=== PATIENT | male | born 1960 | race Caucasian/White ===

== ENCOUNTER 2018-04-04 07:53 | Day surgery (SDC) | payer OTHER ==
--- NOTE | 2018-04-04 08:32 | EDPHY ---
H & P Time Seen by Provider: 04/04/18 08:31 HPI/ROS: Chief complaint. Rapid heart rate HPI. 57-year-old male here with fast heart rate. He went into his fast heart rate about 28 hr ago. He called his branch account manager and was started on Eliquis last night. He has a history of atrial fibrillation and mitral valve repair. 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 Patient denies chest pain or shortness of breath. No unusual leg pain or swelling. Similar symptoms previously ROS 10 systems were reviewed and negative with the exception of the elements mentioned in the history of present illness Past Medical/Surgical History: Past medical history is significant for hypothyroid, atrial fibrillation, mitral valve repair, aortic insufficiency Social History: Divorce, nonsmoker, no alcohol Smoking Status: Never smoked Physical Exam: General Appearance: Alert well-developed male mild distress vital signs show heart rate 122 Eyes: Pupils equal and round no pallor or injection. ENT, Mouth: Mucous membranes are moist. Respiratory: There are no retractions, lungs are clear to auscultation. Cardiovascular: Regular rate and rhythm with tachycardia Gastrointestinal: Abdomen is soft and nontender, no masses, bowel sounds normal. Neurological: Awake and alert, sensory and motor exams grossly normal. Skin: Warm and dry, no rashes. Musculoskeletal: Neck is supple nontender. Extremities symmetrical, full range of motion. Psychiatric: Patient is oriented X 3, there is no agitation. Constitutional: Initial Vital Signs Temperature (C) 36.5 C 04/04/18 08:00 Heart Rate 122 H 04/04/18 08:00 Respiratory Rate 16 04/04/18 08:00 Blood Pressure 134/108 H 04/04/18 08:00 O2 Sat (%) 97 04/04/18 08:00 O2 Delivery Mode Room Air Allergies/Adverse Reactions: codeine Allergy (Verified 04/04/18 07:58) Home Medications: Medication Instructions Recorded Alprazolam 04/04/18 Ambien 04/04/18 Aspirin 04/04/18 Atorvastatin Calcium 04/04/18 Bystolic 04/04/18 Eliquis 04/04/18 Pantoprazole Sodium 04/04/18 Propafenone HCl 04/04/18 Synthroid 04/04/18 Valacyclovir HCl 04/04/18 Medical Decision Making - Diagnostics EKG Interpretation: EKG interpreted by me shows atrial flutter. The computer reads it is sinus tachycardia. Normal axis. QRS is normal. Mild diffuse repolarization changes. Heart rate 125 Procedures: IV normal saline, monitor IV diltiazem ED Course/Re-evaluation: I consulted discussed case with Dr. Swann who sees the patient in the ED. Initially the plan was to do a VELMA and cardioversion in the emergency department. However [facility] has ability to perform this. I discussed admission to [facility] and cardioversion with the patient. He expresses understanding and agreement Differential Diagnosis: Patient has a history of atrial fibrillation. It appears that he is in atrial flutter. He has rapid ventricular response. No evidence for acute coronary syndrome. Plan is VELMA and cardioversion - Data Points Laboratory Results: Laboratory Results 04/04/18 08:20 04/04/18 08:20 04/04/18 04/04/18 04/04/18 08:29 08:20 08:20 WBC RBC Hgb Hct MCV MCH MCHC RDW Plt Count MPV Neut % (Auto) Lymph % (Auto) [place] % (Auto) Eos % (Auto) Baso % (Auto) Nucleat RBC Rel Count Absolute Neuts (auto) Absolute Lymphs (auto) Absolute Monos (auto) Absolute Eos (auto) Absolute Basos (auto) Absolute Nucleated RBC Immature Gran % Immature Gran # PT INR APTT Turbidity Cancelled Sodium Cancelled 144 mEq/L mEq/L (135-145) Potassium Cancelled 3.7 mEq/L mEq/L (3.3-5.0) Chloride Cancelled 109 mEq/L mEq/L (97-110) Carbon Dioxide Cancelled 24 mEq/l mEq/l (22-31) Anion Gap Cancelled 11 mEq/L mEq/L (6-14) BUN Cancelled 20 mg/dL mg/dL (7-23) Creatinine Cancelled 0.9 mg/dL mg/dL (0.7-1.3) Estimated GFR Cancelled > 60 Glucose Cancelled 94 mg/dL mg/dL (70-100) Calcium Cancelled 9.8 mg/dL mg/dL (8.5-10.4) Magnesium 1.8 mg/dL mg/dL (1.6-2.3) POC Troponin I 0.02 ng/mL ng/mL (0.00-0.08) 04/04/18 04/04/18 08:20 08:20 WBC 5.67 10^3/uL 10^3/uL (3.80-9.50) RBC 5.32 10^6/uL 10^6/uL (4.40-6.38) Hgb 17.7 g/dL H g/dL (13.7-17.5) Hct 51.7 % H % (40.0-51.0) MCV 97.2 fL fL (81.5-99.8) MCH 33.3 pg pg (27.9-34.1) MCHC 34.2 g/dL g/dL (32.4-36.7) RDW 12.8 % % (11.5-15.2) Plt Count 205 10^3/uL 10^3/uL (150-400) MPV 8.9 fL fL (8.7-11.7) Neut % (Auto) 47.8 % % (39.3-74.2) Lymph % (Auto) 40.6 % % (15.0-45.0) [place] % (Auto) 9.3 % % (4.5-13.0) Eos % (Auto) 1.4 % % (0.6-7.6) Baso % (Auto) 0.7 % % (0.3-1.7) Nucleat RBC Rel Count 0.0 % % (0.0-0.2) Absolute Neuts (auto) 2.71 10^3/uL 10^3/uL (1.70-6.50) Absolute Lymphs (auto) 2.30 10^3/uL 10^3/uL (1.00-3.00) Absolute Monos (auto) 0.53 10^3/uL 10^3/uL (0.30-0.80) Absolute Eos (auto) 0.08 10^3/uL 10^3/uL (0.03-0.40) Absolute Basos (auto) 0.04 10^3/uL 10^3/uL (0.02-0.10) Absolute Nucleated RBC 0.00 10^3/uL 10^3/uL (0-0.01) Immature Gran % 0.2 % % (0.0-1.1) Immature Gran # 0.01 10^3/uL 10^3/uL (0.00-0.10) PT 12.7 SEC SEC (12.0-15.0) INR 0.93 (0.83-1.16) APTT 28.4 SEC SEC (23.0-38.0) Turbidity Sodium Potassium Chloride Carbon Dioxide Anion Gap BUN Creatinine Estimated GFR Glucose Calcium Magnesium POC Troponin I Medications Given: Discontinued Medications Diltiazem HCl (Cardizem 25 Mg/5 Ml Vial) 10 mg IVP EDNOW ONE Stop: 04/04/18 08:43 Last Admin: 04/04/18 08:50 Dose: 10 mg Sodium Chloride (Ns) 1,000 mls @ 0 mls/hr IV EDNOW ONE; Wide Open PRN Reason: Protocol Stop: 04/04/18 08:43 Last Admin: 04/04/18 08:50 Dose: 1,000 mls Point of Care Test Results: Chemistry 04/04/18 08:29 POC Troponin I 0.02 ng/mL ng/mL (0.00-0.08) Departure - Departure Disposition: To OP Cath/Surgery Clinical Impression: Atrial fibrillation and flutter Condition: Good
[2018-04-04] MEDS ORDERED: DILTIAZEM 25 MG/5 ML VIAL IVP ONE (08:42)
[2018-04-04] MEDS ORDERED: NS 1,000 ML IV ONE (08:42)
[2018-04-04 08:49] LABS: PLATELET COUNT 205 10^3/uL (150-400)
[2018-04-04 09:00] LABS: INR 0.93 (0.83-1.16); PROTIME(PATIENT) 12.7 SEC (12.0-15.0)
[2018-04-04] MEDS ORDERED: ATROPINE SULFATE 1 MG/10 ML SYR IVP ONE (10:00)
[2018-04-04] MEDS ORDERED: BENZOCAINE UNIT DOSE SPRAY HURRICAINE MM ONE (10:00)
[2018-04-04] MEDS ORDERED: NS 500 ML IV ONE (10:00)
[2018-04-04] MEDS ORDERED: fentaNYL 100 MCG/2 ML INJ IVP ONE (10:00)
[2018-04-04] MEDS ORDERED: MIDAZOLAM 2 MG/2 ML VIAL IVP ONE (10:00)
[2018-04-04] MEDS ORDERED: ETOMIDATE 40 MG/20 ML INJ ONE (10:01)
[2018-04-04 10:04] VITALS: BP 113/92
--- NOTE | 2018-04-04 10:25 | PDGENHP ---
History and Physical - Chief Complaint atrial flutter - History of Present Illness Robert is here for evaluation of atrial flutter which awakened him from sleep yesterday morning at 4 AM. His usual pill in the pocket routine did not work to terminate the atrial rhythm disturbance. He has not had about of atrial flutter or fibrillation for at least a year prior to this episode and that terminated within 4 hours. He has had a particularly stressful weekend. 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 History Information - Allergies/Home Medication List Allergies/Adverse Reactions: codeine Allergy (Verified 04/04/18 07:58) Home Medications: Alprazolam 04/04/18 [Last Taken Unknown] Ambien 04/04/18 [Last Taken Unknown] Aspirin 04/04/18 [Last Taken Unknown] Atorvastatin Calcium 04/04/18 [Last Taken Unknown] Bystolic 04/04/18 [Last Taken Unknown] Eliquis 04/04/18 [Last Taken Unknown] Pantoprazole Sodium 04/04/18 [Last Taken Unknown] Propafenone HCl 04/04/18 [Last Taken Unknown] Synthroid 04/04/18 [Last Taken Unknown] Valacyclovir HCl 04/04/18 [Last Taken Unknown] I have personally reviewed and updated: family history, medical history, social history, surgical history - Past Medical History atrial fibrillation Additional medical history: Aotic insufficiency secondary ot a hole in his aortic valve. Possibly a complication of his mitral valve repair in 1994. he also has occasional chest discomfort with exertion and shortness of breath. 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 Review of Systems Review of Systems: Constitutional: Denies: chills, diaphoresis, fever EENMT: Reports: no symptoms Cardiac: Reports: chest pain, irregular heart rate, palpitations Respiratory: Reports: shortness of breath. Denies: cough, orthopnea Gastrointestinal: Reports: no symptoms. Denies: vomitting, black stools, blood streaked stools Genitourinary: Reports: no symptoms Muscolosketal: Reports: no symptoms Skin: Reports: no symptoms Hematologic/Lymphatic: Reports: no symptoms Immunologic/Allergy: Reports: no symptoms Physical Exam Physical Exam: Temp Pulse Resp BP Pulse Ox 36.7 C 126 H 16 113/92 H 93 04/04/18 10:02 04/04/18 10:02 04/04/18 10:02 04/04/18 10:02 04/04/18 10:02 Constitutional: uncomfortable Eyes: PERRL, anicteric sclera, EOMI Ears, Nose, Mouth, Throat: moist mucous membranes, hearing normal, ears appear normal, No oral thrush Cardiovascular: diastolic murmur, other (tachycardia) Peripheral Pulses: 2+: carotid (R), carotid (L), femoral (R), femoral (L), dorsalis-pedis (R), dorsalis-pedis (L) Respiratory: no respiratory distress, no rales or rhonchi, clear to auscultation , No reduced air movement, No expiratory wheeze Gastrointestinal: normoactive bowel sounds, soft, non-tender abdomen Genitourinary: no bladder fullness Skin: warm, normal color Musculoskeletal: full muscle strength, no muscle tenderness Neurologic: AAOx3 Psychiatric: anxious Lab Data & Imaging Review 04/04/18 08:20 04/04/18 08:20 WBC 5.67 10^3/uL (3.80-9.50) 04/04/18 08:20 RBC 5.32 10^6/uL (4.40-6.38) 04/04/18 08:20 Hgb 17.7 g/dL (13.7-17.5) H 04/04/18 08:20 Hct 51.7 % (40.0-51.0) H 04/04/18 08:20 MCV 97.2 fL (81.5-99.8) 04/04/18 08:20 MCH 33.3 pg (27.9-34.1) 04/04/18 08:20 MCHC 34.2 g/dL (32.4-36.7) 04/04/18 08:20 RDW 12.8 % (11.5-15.2) 04/04/18 08:20 Plt Count 205 10^3/uL (150-400) 04/04/18 08:20 MPV 8.9 fL (8.7-11.7) 04/04/18 08:20 Neut % (Auto) 47.8 % (39.3-74.2) 04/04/18 08:20 Lymph % (Auto) 40.6 % (15.0-45.0) 04/04/18 08:20 [place] % (Auto) 9.3 % (4.5-13.0) 04/04/18 08:20 Eos % (Auto) 1.4 % (0.6-7.6) 04/04/18 08:20 Baso % (Auto) 0.7 % (0.3-1.7) 04/04/18 08:20 Nucleat RBC Rel Count 0.0 % (0.0-0.2) 04/04/18 08:20 Absolute Neuts (auto) 2.71 10^3/uL (1.70-6.50) 04/04/18 08:20 Absolute Lymphs (auto) 2.30 10^3/uL (1.00-3.00) 04/04/18 08:20 Absolute Monos (auto) 0.53 10^3/uL (0.30-0.80) 04/04/18 08:20 Absolute Eos (auto) 0.08 10^3/uL (0.03-0.40) 04/04/18 08:20 Absolute Basos (auto) 0.04 10^3/uL (0.02-0.10) 04/04/18 08:20 Absolute Nucleated RBC 0.00 10^3/uL (0-0.01) 04/04/18 08:20 Immature Gran % 0.2 % (0.0-1.1) 04/04/18 08:20 Immature Gran # 0.01 10^3/uL (0.00-0.10) 04/04/18 08:20 PT 12.7 SEC (12.0-15.0) 04/04/18 08:20 INR 0.93 (0.83-1.16) 04/04/18 08:20 APTT 28.4 SEC (23.0-38.0) 04/04/18 08:20 Sodium 144 mEq/L (135-145) 04/04/18 08:20 Potassium 3.7 mEq/L (3.3-5.0) 04/04/18 08:20 Chloride 109 mEq/L (97-110) 04/04/18 08:20 Carbon Dioxide 24 mEq/l (22-31) 04/04/18 08:20 Anion Gap 11 mEq/L (6-14) 04/04/18 08:20 BUN 20 mg/dL (7-23) 04/04/18 08:20 Creatinine 0.9 mg/dL (0.7-1.3) 04/04/18 08:20 Estimated GFR > 60 04/04/18 08:20 Glucose 94 mg/dL (70-100) 04/04/18 08:20 Calcium 9.8 mg/dL (8.5-10.4) 04/04/18 08:20 POC Troponin I 0.02 ng/mL (0.00-0.08) 04/04/18 08:29 Visualized and Interpreted Chest x-ray results: No Visualized and Interpreted EKG results: Yes EKG additional interpertation: Atrial flutter with rapid ventricular respoinse. Query possible left atrial flutter although likely typical counterclockwise flutter involving the cavo triscuspid isthmus. No ischemic change. Assessment & Plan Assessment: Atrial flutter with 2 to 1 conduction needs VELMA as he is not on chronic anticoagulation. I will plan on VELMA guided cardioversion. Abstinence form alcohol and caffeine for at least 14 days post conversion and full dose anticoagulation for at least 1 month with Eliquis 5mg BID post cardioversion. Plan: As above.
--- NOTE | 2018-04-04 10:33 | PDPROPOC ---
Sedation Plan of Care Sedation Plan of Care: vital signs stable, mental status noted, patient educated of risks, benefits, alternatives, patient can tolerate sedation ASA Classification: ASA 3 Planned drugs: fentanyl, midazolam, other (Etomidate for cardioversion) Mallampati Score: Class 2 Mallampati Reference Image: Patient passed 3-3-2 rule?: Yes
[2018-04-04] MEDS ORDERED: fentaNYL 100 MCG/2 ML INJ ONE (10:39)
[2018-04-04] MEDS ORDERED: ONDANSETRON 4 MG/2 ML VIAL ONE (11:08)
[2018-04-04] MEDS ORDERED: methylPREDNISolone SOD SUCC 125 MG/2 ML VIAL ONE (11:11)
--- NOTE | 2018-04-04 11:40 | CPIP ---
DATE OF PROCEDURE: 04/04/2018 PROCEDURE PERFORMED: Transesophageal echocardiogram-guided cardioversion. COMPLICATIONS: None. INDICATION/APPROPRIATE USE CRITERIA: The patient is a 57-year-old male with a history of prior tigre l valve repair in 1994 as well as a history of aortic insufficiency secondary to a hole in the base o f one of his aortic valve cusps, which is known. The patient has also had a history of intermittent atrial fibrillation and atrial flutter, which has been self-limited and treated with a nioj-bu-ukc-po cket routine. His CHADS VASC score is 0. He does not have hypertension, diabetes, prior heart failu re, prior stroke, or embolic event, or history of hypertension. His age also does not qualify for fu ll-dose anticoagulation. The patient has paroxysmal atrial flutter on EKG with associated breathless ness and tachycardia. The patient did not convert with rate control in the emergency department. I have been asked to see the patient for an urgent VELMA cardioversion. PROCEDURE IN DETAIL: After informed consent was obtained, n.p.o. status was confirmed. The patient underwent a successful VELMA. The patient has auhn-dr-yrnspjmf mitral regurgitation, some impairment o f LV systolic function likely related to a tachy-induced myopathy or stunning of his ventricle relate d to the atrial rhythm disturbance. There is mild aortic insufficiency with an eccentric jet which a rises not from the coaptation point of the leaflets, but from the base of one of the aortic valve yojana flets. The left atrial appendage appears to have been oversewn. There is no evidence of Doppler madonna w or evidence of a left atrial clot. Because there were no contraindications on the VELMA evaluation for proceeding with cardioversion, we t hen gave the patient additional etomidate at a dose of 0.08 mg/kg. After adequate deep sedation had been achieved, the patient underwent elective DC cardioversion with 100 joules of biphasic countersho ck, delivered with a patch in the anterior and posterior position with subsequent return of the rhyth m to normal sinus at a rate of 65 with a good pulse and blood pressure at 120/80. The patient will b e convalesced here in the [facility] and will be discharged home once he is able to ambulate and take p.o. w ithout assistance. He will be placed on full-dose anticoagulation with 5 mg of Eliquis b.i.d. for e next month following cardioversion to help reduce the risk of a post conversion embolic event. /[id number]/PRASHANTHL
[2018-04-04] MEDS ORDERED: ONDANSETRON 4 MG/2 ML VIAL IVP ONE (11:45)
[2018-04-04] MEDS ORDERED: ETOMIDATE 40 MG/20 ML INJ IV ONE (11:45)
[2018-04-04] MEDS ORDERED: methylPREDNISolone SOD SUCC 125 MG/2 ML VIAL IVP ONE (11:45)
--- NOTE | 2018-04-04 14:03 | CPEKG ---
Test Reason : OPEN Blood Pressure : / mmHG Vent. Rate : 125 BPM Atrial Rate : 125 BPM P-R Int : 117 ms QRS Dur : 111 ms QT Int : 336 ms P-R-T Axes : 082 046 061 degrees QTc Int : 485 ms Repol abnrm suggests ischemia, anterolateral Confirmed by Jason Ventura ([id number]) on 04/04/2018 2:02:41 PM Referred By: Confirmed By:Jason Ventura
--- NOTE | 2018-04-06 09:20 | CPEKG ---
Test Reason : OPEN Blood Pressure : / mmHG Vent. Rate : 052 BPM Atrial Rate : 052 BPM P-R Int : 207 ms QRS Dur : 109 ms QT Int : 422 ms P-R-T Axes : 033 009 035 degrees QTc Int : 393 ms Sinus rhythm Borderline prolonged AR interval Repol abnrm suggests ischemia, anterolateral Prior ECG was tachycardic (rates >125 bpm) with what appears to be sinus tachycardia Confirmed by Renny Gutierrez ([id number]) on 04/06/2018 9:20:15 AM Referred By: Confirmed By:Renny Gutierrez
--- NOTE | 2018-04-07 17:45 | ECHO ---
[email or web address] [address] [address] Main: [phone] Fax: Transesophageal Echocardiography Name: PAOLA LAMB MR#: [id number] Study Date: 04/04/2018 Study Time: 10:19 AM Date of : 1960 Age: 57 year(s) Height: ( ) Weight: ( ) BSA: Gender: Male Examination: VELMA Indication: pre cardioversion Image Quality: Contrast: Requested by: Derrick Swann Heart Rate: Rhythm: BP: / Procedure Staff [employer] Specialist: Mary Grace Campbell RUST Reading Physician: Derrick Swann MD Requesting Provider: VELMA Exam Details Conclusions: Normal size left ventricle. Normal global systolic LV function. No thrombus is noted in the left atrium. Left atrial appendage has been sewn over in prior open heart surgery. S/P mitral valve repair with ring. Mild mitral regurgitation. Eccentric aortic insufficiency. Mild tricuspid regurgitation is present. No pericardial effusion. The VELMA was performed prior to sucessful VELMA cardioversion. VELMA unchanged from prior. Measurements: Chambers Valvular Assessment AV/MV Valvular Assessment TV/PV Normal Normal Normal Name Value Range Name Value Range Name Value Range Additional Measurements: Findings: Left Ventricle: Normal size left ventricle. Normal global systolic LV function. Left Atrium: No thrombus is noted in the left atrium. Left Atrial Appendage: Patient: PAOLA LAMB Study Date: 04/04/2018 Page 1 of 2 10:19 AM Left atrial appendage has been sewn over in prior open heart surgery. Mitral Valve: S/P mitral valve repair with ring. Mild mitral regurgitation. Aortic Valve: Eccentric aortic insufficiency. Tricuspid Valve: Mild tricuspid regurgitation is present. Pericardium: No pericardial effusion. l1n (No Signature Object) Patient: PAOLA LAMB Study Date: 04/04/2018 Page 2 of 2 10:19 AM [id number]
== END 2018-04-04 15:46 | disposition home or self-care (01) ==
LOC: FCATH 10:13
PROVIDERS: ATTEND Internal Medicine Cardiovascular Disease
DX: I48.92 Unspecified atrial flutter (principal); I35.1 Nonrheumatic aortic (valve) insufficiency; I34.0 Nonrheumatic mitral (valve) insufficiency; E86.9 Volume depletion, unspecified; I48.91 Unspecified atrial fibrillation; E03.9 Hypothyroidism, unspecified
CPT/HCPCS: 84484-PO; 96374; J0461; J2250; J2405; J2930; J3010